=== PATIENT | female | born 1990 | race Caucasian/White ===

== ENCOUNTER → 2016-11-04 | Outpatient (CLI) | payer BC, OTHER ==
--- NOTE | 2016-11-04 14:18 | P.HPBAR ---
Bariatric H&P - History & Physicial H&P Date: 11/04/16 History & Physicial: Visit/CC: Patient initial contact: Initial weight: 171.004 kg Initial weight in pounds: Height: 5 ft 3 in Initial BMI: Last weight: Current weight: 86.409 kg Current weight in pounds: Current BMI: [place] body weight (based on NIH guidelines): Excess body weight loss: The patient is a 26 year-old F who presents for Bariatric Assessment. The patient complains of some weight gain. She's gained approximately 15 pounds over the last 5 months. Her panniculectomy incision is well-healed. She has complaints of GERD. 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 She was hospitalized for one and a half months and then went to rehab., NEUROPATHY, SEASONAL ALLERGIES, RED AND ITCHY IN FOLDS OF ABDOMEN AND AT BELLY BUTTON, IUD CONTROL. History of Any Multi-Drug Resistant Organisms: None Reported Past Surgical History: Bariatric Surgery Additional Past Surgical History / Comment(s): gastric sleeve and endoscopies 2012 Past Anesthesia/Blood Transfusion Reactions: No Reported Reaction, Motion Sickness Past Psychological History: Anxiety Smoking Status: Never smoker Past Alcohol Use History: Rare Additional Past Alcohol Use History / Comment(s): SMOKED FOR 4 YEARS.,QUIT SMOKING APRIL 2016, SMOKED 1PPD . Past Drug Use History: None Reported - Past Family History Mother Family Medical History: No Reported History Father History Unknown: Yes Family Medical History: Unable to Obtain Surgical - Exam - General well developed, no distress - Eyes PERRL - ENT normal pinna, normal nares - Neck no masses - Respiratory normal expansion - Cardiovascular Rhythm: regular - Abdomen Abdomen: soft Bariatric Assessment & Plan Plan: GERD. Patient was instructed to continue omeprazole. She will try to go off omeprazole after 12 weeks and use Pepcid 4 weeks. Bariatric Checklist Checklist: Plan: Checklist: EGD: 1. Hiatal hernia: 2. H. Pylori: HgbA1c: Vitamin D: Smoking: Never smoker Primary care physician referral: Psychiatry clearance: Cardiology clearance: Sleep study: Diet journal: VTE risk score: VTE risk level: Rehab needs at discharge:
[2016-11-04 15:11] VITALS: BP 144/63; PULSE 81; TEMP 97.7; BMI 33.7
== END | disposition home or self-care (01) ==
LOC: BARWHC3 13:12
PROVIDERS: ATTEND Surgery
DX: Z48.815 Encounter for surgical aftercare following surgery on the digestive system (principal); Z98.84 Bariatric surgery status; K21.9 Gastro-esophageal reflux disease without esophagitis; Z79.899 Other long term (current) drug therapy; Z87.891 Personal history of nicotine dependence
CPT/HCPCS: 99211

== ENCOUNTER 2017-06-29 21:09 | Emergency (ER) | payer BC, OTHER ==
[2017-06-29 21:21] VITALS: RESP 18
[2017-06-29] MEDS ORDERED: SODIUM CHLORIDE 0.9% 500 ML IV STA (21:50)
--- NOTE | 2017-06-29 21:55 | ED ---
General Adult HPI - General Chief complaint: Allergic Reaction Stated complaint: Allergic Reaction Time Seen by Provider: 06/29/17 21:32 Source: patient, family Mode of arrival: ambulatory Limitations: no limitations - History of Present Illness Initial comments: 26-year-old female patient presents today with complaints of chest pressure, shortness of breath, and racing heart. She states that she has been feeling poorly over the last couple of weeks, states that she has been very fatigued and having some dizziness. States she went to her doctor on Friday did have some blood work done, they did find that she was hypothyroid. He states that she started her Synthroid today, states approximately 23 minutes after taking the medication she became flushed, short of breath, and had chest pressure. States that she thought she was having ALLERGIC reaction so she took some Benadryl around 4 PM. She states that she took a nap after this. She states she woke up with similar symptoms, states that she was very hot and sweaty, so she presented for evaluation. Patient has a past medical history significant for Guillain-Montes and is currently being treated with Levaquin for a otitis media. She denies any recent travel, long car rides, or flights. She denies any calf pain or tenderness. Denies any leg swelling. States that she has a Mirena IUD. Patient denies any recent rash, fever, chills, abdominal pain, nausea, vomiting, diarrhea, constipation, back pain, numbness, tingling, weakness, hematuria, dysuria, urinary urgency, urinary frequency, headache, visual changes, or any other complaints. - Related Data Home Medications Medication Instructions Recorded Confirmed Gabapentin [Neurontin] 800 mg PO TID 04/29/16 06/29/17 Levofloxacin [Levaquin] 500 mg PO HS 06/29/17 06/29/17 Levothyroxine Sodium [Synthroid] 50 mcg PO DAILY 06/29/17 06/29/17 Loratadine [Claritin] 10 mg PO DAILY 06/29/17 06/29/17 Ranitidine HCl [Zantac] 150 mg PO HS 06/29/17 06/29/17 Previous Rx's Medication Instructions Recorded Albuterol Sulfate [Proair Hfa] 1 - 2 puff INHALATION Q6HR PRN #1 06/30/17 inhaler Allergies Allergy/AdvReac Type Severity Reaction Status Date / Time cephalexin [From Keflex] Allergy Hives/Dyspn Verified 06/29/17 22:20 ea Latex, Natural Rubber Allergy Swelling Verified 06/29/17 22:20 sulfamethoxazole Allergy Anaphylaxis Verified 06/29/17 22:20 [From Bactrim] trimethoprim [From Bactrim] Allergy Anaphylaxis Verified 06/29/17 22:20 venom-honey bee Allergy Anaphylaxis Verified 06/29/17 22:20 [bee venom (honey bee)] Review of Systems ROS Statement: Those systems with pertinent positive or pertinent negative responses have been documented in the HPI. ROS Other: All systems not noted in ROS Statement are negative. 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 She was hospitalized for one and a half months and then went to rehab., NEUROPATHY, SEASONAL ALLERGIES, RED AND ITCHY IN FOLDS OF ABDOMEN AND AT BELLY BUTTON, IUD CONTROL. History of Any Multi-Drug Resistant Organisms: None Reported Past Surgical History: Bariatric Surgery Additional Past Surgical History / Comment(s): gastric sleeve and endoscopies 2013 panniculectomy Past Anesthesia/Blood Transfusion Reactions: No Reported Reaction, Motion Sickness Past Psychological History: Anxiety Smoking Status: Never smoker Past Alcohol Use History: Rare Past Drug Use History: None Reported - Past Family History Mother Family Medical History: No Reported History Father History Unknown: Yes Family Medical History: Unable to Obtain General Exam Limitations: no limitations General appearance: alert, in no apparent distress, other (Physical well- developed, well-nourished about female patient in no acute distress. Vital signs upon presentation are temperature 98.9F, pulse 93, respirations 18, blood pressure 131/79, pulse ox 99% on room air.) Eye exam: Present: normal appearance, PERRL, EOMI. Absent: scleral icterus, conjunctival injection, periorbital swelling ENT exam: Present: normal exam, normal oropharynx, mucous membranes moist Neck exam: Present: normal inspection. Absent: tenderness, meningismus, lymphadenopathy Respiratory exam: Present: normal lung sounds bilaterally, wheezes (Mild expiratory wheeze throughout posterior lung urbano). Absent: respiratory distress, rales, rhonchi, stridor Cardiovascular Exam: Present: regular rate, normal rhythm, normal heart sounds. Absent: systolic murmur, diastolic murmur, rubs, gallop, clicks GI/Abdominal exam: Present: soft, normal bowel sounds. Absent: distended, tenderness, guarding, rebound, rigid Neurological exam: Present: alert, oriented X3, CN II-XII intact Psychiatric exam: Present: normal affect, normal mood Skin exam: Present: warm, dry, intact, normal color. Absent: rash Course Vital Signs 06/29/17 06/29/17 21:17 21:26 Temperature 98.9 F Pulse Rate 93 Respiratory 18 18 Rate Blood Pressure 131/79 O2 Sat by Pulse 99 98 Oximetry EKG Findings - EKG Comments: EKG Findings:: EKG obtained at 2126 shows normal sinus rhythm with a ventricular rate of 86, para interval 168, QRS duration 72, QT 334, QTC 399. No evidence of ST elevation or depression. Medical Decision Making - Medical Decision Making 26-year-old female patient presented for evaluation today for shortness of breath and chest pressure. The patient states this started shortly after taking her new medication Synthroid today. Patient states she fell and she is having difficulty getting air in. He states she did read the side effects of this medication however they felt different than what she was reading. Lab work here was unremarkable. Chest x-ray was negative for any acute cardio pulmonary process. Child did have some mild expiratory wheezing upon auscultation. She states she takes Claritin for this usually. She does admit to smoking. She was given education regarding smoking cessation. She will be given a Proair inhaler to use for any recurrent symptoms. I did encourage her to continue the Synthroid. I instructed her to follow-up with her primary care physician for recheck in 1-2 days. States she will be in the office tomorrow she does have an ultrasound for her thyroid. She is instructed to return here immediately for any new, worsening, or concerning symptoms. Patient verbalizes understanding and agrees this plan. - Lab Data Result diagrams: 06/29/17 22:11 06/29/17 22:11 Lab Results 06/29/17 06/29/17 06/29/17 Range/Units 22:11 22:11 22:11 WBC 8.5 (3.8-10.6) k/uL RBC 4.82 (3.80-5.40) m/uL Hgb 15.6 (11.4-16.0) gm/dL Hct 44.8 (34.0-46.0) % MCV 92.9 (80.0-100.0) fL MCH 32.4 (25.0-35.0) pg MCHC 34.8 (31.0-37.0) g/dL RDW 12.4 (11.5-15.5) % Plt Count 246 (150-450) k/uL Neutrophils % 71 % Lymphocytes % 21 % Monocytes % 5 % Eosinophils % 1 % Basophils % 0 % Neutrophils # 6.0 (1.3-7.7) k/uL Lymphocytes # 1.8 (1.0-4.8) k/uL Monocytes # 0.4 (0-1.0) k/uL Eosinophils # 0.1 (0-0.7) k/uL Basophils # 0.0 (0-0.2) k/uL D-Dimer 0.18 (<0.60) mg/L FEU Sodium 140 (137-145) mmol/L Potassium 4.0 (3.5-5.1) mmol/L Chloride 109 H (98-107) mmol/L Carbon Dioxide 21 L (22-30) mmol/L Anion Gap 10 mmol/L BUN 4 L (7-17) mg/dL Creatinine 0.60 (0.52-1.04) mg/dL Est GFR (MDRD) Af Amer >60 (>60 ml/min/1.73 sqM) Est GFR (MDRD) Non-Af >60 (>60 ml/min/1.73 sqM) Glucose 92 (74-99) mg/dL Calcium 9.7 (8.4-10.2) mg/dL Total Bilirubin 0.6 (0.2-1.3) mg/dL AST 18 (14-36) U/L ALT 30 (9-52) U/L Alkaline Phosphatase 111 (38-126) U/L Troponin I (0.000-0.034) ng/mL Total Protein 7.6 (6.3-8.2) g/dL Albumin 4.4 (3.5-5.0) g/dL Urine Color Urine Appearance (Clear) Urine pH (5.0-8.0) Ur Specific [place] (1.001-1.035) Urine Protein (Negative) Urine Glucose (UA) (Negative) Urine Ketones (Negative) Urine Blood (Negative) Urine Nitrite (Negative) Urine Bilirubin (Negative) Urine Urobilinogen (<2.0) mg/dL Ur Leukocyte Esterase (Negative) Urine HCG, Qual (Not Detectd) Urine Opiates Screen (NotDetected) Ur Oxycodone Screen (NotDetected) Urine Methadone Screen (NotDetected) Ur Propoxyphene Screen (NotDetected) Ur Barbiturates Screen (NotDetected) U Tricyclic Antidepress (NotDetected) Ur Phencyclidine Scrn (NotDetected) Ur Amphetamines Screen (NotDetected) U Methamphetamines Scrn (NotDetected) U Benzodiazepines Scrn (NotDetected) Urine Cocaine Screen (NotDetected) U Marijuana (THC) Screen (NotDetected) 06/29/17 06/29/17 06/29/17 Range/Units 22:11 22:11 22:11 WBC (3.8-10.6) k/uL RBC (3.80-5.40) m/uL Hgb (11.4-16.0) gm/dL Hct (34.0-46.0) % MCV (80.0-100.0) fL MCH (25.0-35.0) pg MCHC (31.0-37.0) g/dL RDW (11.5-15.5) % Plt Count (150-450) k/uL Neutrophils % % Lymphocytes % % Monocytes % % Eosinophils % % Basophils % % Neutrophils # (1.3-7.7) k/uL Lymphocytes # (1.0-4.8) k/uL Monocytes # (0-1.0) k/uL Eosinophils # (0-0.7) k/uL Basophils # (0-0.2) k/uL D-Dimer (<0.60) mg/L FEU Sodium (137-145) mmol/L Potassium (3.5-5.1) mmol/L Chloride (98-107) mmol/L Carbon Dioxide (22-30) mmol/L Anion Gap mmol/L BUN (7-17) mg/dL Creatinine (0.52-1.04) mg/dL Est GFR (MDRD) Af Amer (>60 ml/min/1.73 sqM) Est GFR (MDRD) Non-Af (>60 ml/min/1.73 sqM) Glucose (74-99) mg/dL Calcium (8.4-10.2) mg/dL Total Bilirubin (0.2-1.3) mg/dL AST (14-36) U/L ALT (9-52) U/L Alkaline Phosphatase (38-126) U/L Troponin I <0.012 (0.000-0.034) ng/mL Total Protein (6.3-8.2) g/dL Albumin (3.5-5.0) g/dL Urine Color Colorless Urine Appearance Clear (Clear) Urine pH 7.0 (5.0-8.0) Ur Specific [place] 1.001 (1.001-1.035) Urine Protein Negative (Negative) Urine Glucose (UA) Negative (Negative) Urine Ketones Negative (Negative) Urine Blood Negative (Negative) Urine Nitrite Negative (Negative) Urine Bilirubin Negative (Negative) Urine Urobilinogen <2.0 (<2.0) mg/dL Ur Leukocyte Esterase Negative (Negative) Urine HCG, Qual Not Detected (Not Detectd) Urine Opiates Screen Not Detected (NotDetected) Ur Oxycodone Screen Not Detected (NotDetected) Urine Methadone Screen Not Detected (NotDetected) Ur Propoxyphene Screen Not Detected (NotDetected) Ur Barbiturates Screen Not Detected (NotDetected) U Tricyclic Antidepress Not Detected (NotDetected) Ur Phencyclidine Scrn Not Detected (NotDetected) Ur Amphetamines Screen Not Detected (NotDetected) U Methamphetamines Scrn Not Detected (NotDetected) U Benzodiazepines Scrn Not Detected (NotDetected) Urine Cocaine Screen Not Detected (NotDetected) U Marijuana (THC) Screen Detected H (NotDetected) - Radiology Data Radiology results: report reviewed, image reviewed 2 views of the chest were obtained and showed the lungs are clear with no evidence of pleural effusion or pneumothorax. Heart size is within normal limits. Mediastinum is unremarkable. Bones and joints are unremarkable. Impression by Dr. Bernal shows no evidence of active chest disease. Disposition Clinical Impression: Shortness of breath Disposition: HOME SELF-CARE Condition: Good Instructions: Dyspnea (ED) Additional Instructions: Follow-up with her primary care physician for recheck in 1-2 days. Return here immediately for any new, worsening, or concerning symptoms. Prescriptions: Albuterol Sulfate [Proair Hfa] 1 - 2 puff INHALATION Q6HR PRN #1 inhaler PRN Reason: Wheezing Referrals: Jakub Candelaria MD [Primary Care Provider] - 1-2 days Time of Disposition: 00:19
[2017-06-29 22:31] LABS: Appearance,Urine Clear (Clear); Basophils % (A) 0 %; Bilirubin,Urine Negative (Negative); CHCM 34.5; Eosinophils # (A) 0.1 k/uL (0-0.7); Eosinophils % (A) 1 %; Glucose,Urine (UA) Negative (Negative); HCT 44.8 % (34.0-46.0); HGB 15.6 gm/dL (11.4-16.0); Ketones,Urine Negative (Negative); Leukocyte Esterase,Urine Negative (Negative); Luc # (Auto) 0.13; Luc % (Auto) 2; Lymphocytes # (A) 1.8 k/uL (1.0-4.8); Lymphocytes % (A) 21 %; MCH 32.4 pg (25.0-35.0); MCHC 34.8 g/dL (31.0-37.0); MCV 92.9 fL (80.0-100.0); Mean Platelet Volume 6.6; Monocytes # (A) 0.4 k/uL (0-1.0); Monocytes % (A) 5 %; Neutrophils % (A) 71 %; Nitrite,Urine Negative (Negative); Protein,Urine Negative (Negative); RBC 4.82 m/uL (3.80-5.40); RDW 12.4 % (11.5-15.5); Specific Gravity,Urine 1.001 (1.001-1.035); UA Billing (MACRO vs. MICRO) CHEM; Urobilinogen,Urine <2.0 mg/dL (<2.0); WBC 8.5 k/uL (3.8-10.6); WBC (Perox) 8.82
[2017-06-29 22:40] LABS: ALT 30 U/L (9-52); AST 18 U/L (14-36); Alkaline Phosphatase 111 U/L (38-126); Anion Gap 10 mmol/L; Blood Urea Nitrogen 4 mg/dL (7-17); Calcium 9.7 mg/dL (8.4-10.2); Carbon Dioxide 21 mmol/L (22-30); Chloride 109 mmol/L (98-107); Glucose 92 mg/dL (74-99); Non-African American GFR(MDRD) >60 (>60 ml/min/1.73 sqM); Sodium 140 mmol/L (137-145); Total Bilirubin 0.6 mg/dL (0.2-1.3); Total Protein 7.6 g/dL (6.3-8.2)
--- NOTE | 2017-06-29 23:21 | XR ---
EXAM: XR Chest, 2 Views CLINICAL HISTORY: Reason: Pain TECHNIQUE: Frontal and lateral views of the chest. COMPARISON: No relevant prior studies available. FINDINGS: Lungs: Lungs are clear Pleural space: No evidence of pleural effusion or pneumothorax Heart: Heart size is within normal limits. Mediastinum: Unremarkable. Bones/joints: Imaged bony thorax is unremarkable IMPRESSION: No evidence of active chest disease.
[2017-06-30 00:29] VITALS: BP 128/75; PULSE 84; TEMP 98.5
== END 2017-06-30 00:29 | disposition home or self-care (01) ==
LOC: EC 21:09
DX: R06.02 Shortness of breath (principal); R07.89 Other chest pain; R00.2 Palpitations; R53.83 Other fatigue; R42 Dizziness and giddiness; R06.2 Wheezing; H66.90 Otitis media, unspecified, unspecified ear; K21.9 Gastro-esophageal reflux disease without esophagitis; G62.9 Polyneuropathy, unspecified; E07.9 Disorder of thyroid, unspecified; F41.9 Anxiety disorder, unspecified; F17.200 Nicotine dependence, unspecified, uncomplicated; Z79.899 Other long term (current) drug therapy; Z88.1 Allergy status to other antibiotic agents; Z91.030 Bee allergy status; Z91.040 Latex allergy status; Z91.048 Other nonmedicinal substance allergy status; Z97.5 Presence of (intrauterine) contraceptive device
CPT/HCPCS: 36415; 71020; 80053; 80306; 81003; 81025; 84484; 85025; 85379; 93005; 96360; 96361; 99285

== ENCOUNTER → 2017-06-30 | Outpatient (CLI) | payer BC, OTHER ==
[2017-06-30 13:44] VITALS: BP 116/73; PULSE 75; RESP 16; TEMP 98.1; BMI 34.5
--- NOTE | 2017-06-30 15:00 | P.HPBAR ---
Bariatric H&P - History & Physicial H&P Date: 06/30/17 History & Physicial: Visit/CC: Sleeve follow-up Patient initial contact: Initial weight: 171.004 kg Initial weight in pounds: 377.00 Height: 5 ft 3 in Initial BMI: 66.7 Last weight: 195 Current weight: 88.564 kg Current weight in pounds: 195.00 Current BMI: 34.5 [place] body weight (based on NIH guidelines): 52.163 kg Excess body weight loss: 69.4% The patient is a 26 year-old F who presents for Bariatric Assessment. The patient presents for sleeve gastrectomy follow-up. Her weight is remain stable. She has some minimal GERD. She's complaining of loose skin on her back. 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 She was hospitalized for one and a half months and then went to rehab., NEUROPATHY, SEASONAL ALLERGIES, RED AND ITCHY IN FOLDS OF ABDOMEN AND AT BELLY BUTTON, IUD CONTROL. History of Any Multi-Drug Resistant Organisms: None Reported Past Surgical History: Bariatric Surgery Additional Past Surgical History / Comment(s): gastric sleeve and endoscopies 2013 panniculectomy Past Anesthesia/Blood Transfusion Reactions: No Reported Reaction, Motion Sickness Past Psychological History: Anxiety Smoking Status: Never smoker Past Alcohol Use History: Rare Additional Past Alcohol Use History / Comment(s): SMOKED FOR 4 YEARS.,QUIT SMOKING APRIL 2016, SMOKED 1PPD . Past Drug Use History: None Reported - Past Family History Mother Family Medical History: No Reported History Father History Unknown: Yes Family Medical History: Unable to Obtain Surgical - Exam Vital Signs Temp Pulse Resp BP 98.1 F 75 16 116/73 06/30/17 13:41 06/30/17 13:41 06/30/17 13:41 06/30/17 13:41 - General well developed, no distress - Eyes PERRL - ENT normal pinna - Neck no masses - Respiratory normal expansion - Abdomen Abdomen: soft, non tender Bariatric Assessment & Plan Plan: Number sleeve gastrectomy. Her weight loss has been stable. She will follow- up in 2 months. Her GERD symptoms are minimal and will be observed. Bariatric Checklist Checklist: Plan: Checklist: EGD: 1. Hiatal hernia: 2. H. Pylori: HgbA1c: Vitamin D: Smoking: Never smoker Primary care physician referral: none Psychiatry clearance: Cardiology clearance: Sleep study: Diet journal: VTE risk score: VTE risk level: Rehab needs at discharge:
== END | disposition home or self-care (01) ==
LOC: BARWHC3 13:17
PROVIDERS: ATTEND Surgery
DX: Z09 Encounter for follow-up examination after completed treatment for conditions other than malignant neoplasm (principal); K21.9 Gastro-esophageal reflux disease without esophagitis; Z90.3 Acquired absence of stomach [part of]
CPT/HCPCS: 99211